=== PATIENT | male | born 1950 | race Caucasian/White ===

== ENCOUNTER 2024-12-14 23:26 | Emergency (ER) | payer BC, SELFPAY ==
[2024-12-14 23:30] VITALS: BP 147/59
[2024-12-15 00:39] LABS: % Basophils 0.7 % (0-2); % Eosinophils 1.7 % (0-6); % Immature Granulocytes 0.6 % (0-0.5); % Lymphocytes 8.6 % (20.5-51.1); % Monocytes 5.2 % (1.7-9.3); % Neutrophils 83.2 % (42.2-75.2); Absolute Basophils 0.1 10^3/uL (0-0.2); Absolute Eosinophils 0.2 10^3/uL (0-0.7); Absolute Immature Granulocytes 0.1 10^3/uL (0-0.05); Absolute Lymphocytes 0.8 10^3/uL (1.2-3.4); Absolute Monocytes 0.5 10^3/uL (0.1-0.6); Absolute Neutrophils 7.6 10^3/uL (1.4-6.5); Hematocrit 40.5 % (39.0-52.0); Hemoglobin 14.1 g/dL (13.0-18.0); Mean Corp Hgb Conc. 34.8 g/dL (33.0-37.0); Mean Corpuscular Hgb 29.1 pg (27.0-31.0); Mean Corpuscular Volume 83.7 fL (80.0-94.0); Mean Platelet Volume 9.3 fL (7.4-10.4); Nucleated Red Blood Cells % 0 % (-); Platelet Count 164 10^3/uL (130-400); Red Blood Cell Count 4.84 10^6/uL (4.70-6.10); Red Cell Dist. Width 15.2 % (11.5-14.5); White Blood Cell Count 9.1 10^3/uL (4.8-10.8)
--- NOTE | 2024-12-15 00:59 | ED.GENMED ---
History of Present Illness
General
Chief Complaint: Abdominal Symptoms
Source: patient and family
Exam Limitations: none
Time Seen by Provider: 12/15/24 00:19
Nursing documentation reviewed up to this point in time: agreed with
History of Present Illness
History of Present Illness:
see MDM
Past History
Past History
ED Past Medical History: NIDDM ('Borderline'), Psychiatric (Anxiety, depression) and Other (CRPS, RSD)
ED Past Surgical History: Cholecystectomy
Social History
Personal:
Review of Systems
Review of Systems
Allergies reviewed?: Yes
All Other Systems: Not applicable
Phy Exam
Physical Exam
Physical Exam:
GENERAL: Alert , in no apparent distress
EYE: pupils equal and reactive
NECK: Supple
ENT: o/p clr, mmm.
CARDIAC: Regular rate and rhythm .
LUNGS: Clear breath sounds bilaterally, no acute respiratory distress, no wheezes/rales/rhonchi
ABDOMEN: Soft, obese, normal bowel sounds
midlin vertical incision well healed
no real tenderness; no guarding/rebound
NEUROLOGICAL: Alert and oriented, no focal neuro deficits
SKIN: Warm and dry, skin intact.
MUSCULOSKELETAL: modearet edema, PVD skin changes
PSYCH: Normal and appropriate interaction.
Course
Orders/Labs/Results
Orders:
Orders
12/14/24 23:35
Complete Blood Count/With Diff Urgent
Comprehensive Metabolic Panel Urgent
Lipase Urgent
Urinalysis Reflex To Culture Urgent
Date Specimen was Collected: 12/14/24
Time Specimen was Collected: 23:35
12/15/24 00:47
CT Abd/pel W Iv And Oral Contr Urgent
Comment:
Reason For Exam: lower abd pain, diarrhea x 5 days; colon ca
0.9% Sodium Chloride 250 ml [Nss] 250 ml IV BOLUS
Iohexol [Omnipaque] See Protocol PO NOW STA
12/15/24 01:05
PTT Urgent
Prothrombin Time Urgent
12/15/24 01:28
Urine Microscopic Reflex Cult Urgent
12/15/24 03:03
STOOL [C difficile Antigen & Toxins] Urgent
HERMELINDO Source: Feces/Stool
Specimen Description:
Date Specimen was Collected: 12/15/24
Time Specimen was Collected: 03:02
Stool Culture Urgent
HERMELINDO Source: Feces/Stool
Specimen Description:
Date Specimen was Collected: 12/15/24
Time Specimen was Collected: 03:02
12/15/24 04:38
Amoxicillin 875 mg/Clav 125 mg [Augmentin 875 mg/125 mg] 1 tablet PO NOW STA
Vancomycin HCl [Firvanq] 125 mg PO NOW STA
12/15/24 04:59
Vancomycin HCl [Firvanq] 125 mg PO NOW STA
Abnormal Lab Results
12/15/24 12/15/24 12/15/24
00: 01:05 01:28
RDW 15.2 H %
(11.5-14.5)
Abs Immat Gran (auto) 0.1 H 10^3/uL
(0-0.05)
Absolute Neuts (auto) 7.6 H 10^3/uL
(1.4-6.5)
Absolute Lymphs (auto) 0.8 L 10^3/uL
(1.2-3.4)
Immature Gran % 0.6 H %
(0-0.5)
Neutrophils % 83.2 H %
(42.2-75.2)
Lymphocytes % 8.6 L %
(20.5-51.1)
PT 32.3 H Sec
(11.4-14.6)
APTT 40.2 H Sec
(23.4-35.0)
Sodium 134 L mmol/L
(135-145)
Carbon Dioxide 20 L mmol/L
(22-30)
BUN 8 L mg/dl
(9-20)
Glucose 176 H mg/dl
(70-99)
Calcium 8.0 L mg/dl
(8.4-10.2)
Urine Ketones 2+ A
(Negative)
Urine Bacteria (Reflex) Few A
(Negative)
Urine Albumin (Reflex) 1+ A
(Neg - Trace)
12/15/24 00:26
12/15/24 00:26
Vital Signs
Initial and Last Documented VS:
Initial Vital Signs
Temp Pulse Resp BP Pulse Ox
36.7 C 101 20 147/59 96
12/14/24 23:30 12/14/24 23:30 12/14/24 23:30 12/14/24 23:30 12/14/24 23:30
Last Documented Vital Signs
Temp Pulse Resp BP Pulse Ox
36.7 C 77 20 147/73 96
12/14/24 23:30 12/15/24 02:08 12/14/24 23:30 12/15/24 03:52 12/15/24 04:00
MDM/Problems Addressed
Differential Diagnosis Includes:
SEE MDM
MDM/Problems Addressed:
Note:
CHIEF COMPLAINT(S)
Diarrhea
HISTORY OF PRESENT ILLNESS
The patient is a male with a past medical history significant for colon cancer and subsequent partial resection approximately one and a half years ago, presenting with diarrhea that began five days ago. The diarrhea occurs every time the patient
consumes food. The patient describes the diarrhea as non-bloody and denies nausea, vomiting, dizziness, or fever. The patient reports crampy abdominal pain preceding the bowel movements but denies bloating or constipation. The patient has
experienced similar diarrhea in the past related to surgery. No recent travel or antibiotic use reported. His , who lives with him, is asymptomatic. The patient is disabled and housebound. Past evaluation for cancer recurrence has been negative.
ADDITIONAL HISTORY OBTAINED FROM SOURCES OTHER THAN THE PATIENT
According to the patient�s report, his has not experienced similar symptoms.
CHRONIC MEDICAL CONDITIONS SIGNIFICANTLY AFFECTING CARE
Chronic conditions affecting care: History of colon cancer with prior surgical resection.
PHYSICAL EXAM
Nursing notes reviewed and vital signs reviewed.
PLAN
A stool sample will be requested to test for Clostridioides difficile infection. The patient will be provided contrast for a bowel scan to assess current bowel status. Electrolyte levels will be checked to evaluate for dehydration. Consideration of
mobility aids (e.g., bedside commode or bedpan) to assist with toileting due to disability and mobility challenges.
DIFFERENTIAL DIAGNOSIS
The Differential Diagnosis includes, in no particular order and is not limited to:
1. Infectious diarrhea
2. Clostridioides difficile infection
3. Partial bowel obstruction
4. Colitis
5. Diverticulitis
6. Medication-induced diarrhea
7. Irritable bowel syndrome
8. Inflammatory bowel disease
9. Ischemic colitis
10. Recurrence or complication of prior colorectal surgery
CARE-UPDATE
12/15/24 - 04:37
The patient presented with pancolitis, likely indicating inflammation or infection of the colon. Given the patients past colonization with [id number] C. diff and recent history of diarrhea for five days, theres a consideration for both
infection management and prevention of C. diff complications. Blood work shows no significant white count elevation, and electrolytes are stable, suggesting hemodynamic stability.
Two management options were discussed: hospital admission for antibiotic treatment and fluid management, or discharge with oral antibiotics including Augmentin and vancomycin to prevent C. diff exacerbation. After consulting with Dr. Arroyo, the
patient expressed a preference for the home management option. It was emphasized that if symptoms worsen, such as increased abdominal pain, fever, or inability to maintain hydration, the patient should return promptly. Additionally, pending stool
culture results could necessitate discontinuation of Augmentin if C. diff is confirmed, leaving vancomycin as the primary treatment. Patients lead pourer is aware of these instructions and will monitor symptoms closely.
Note:
Disposition:
SUMMARY OF ENCOUNTER
A 74-year-old male with a history of colon cancer status post-resection, chronic pain, chf on lasix, and on warfarin presented for evaluation of five days of diarrhea characterized by several episodes of watery stools daily, non-bloody, accompanied
by minimal abdominal cramps prior to each episode. The patient did not exhibit any distress and reported feeling hydrated, being able to drink fluids. Given the prolonged duration of symptoms, he sought medical evaluation. On examination, despite
prior abdominal surgery, his abdomen was soft, mildly obese, non-tender, with normal bowel sounds. A CT scan indicated pancolitis. After review with Dr. Arroyo and consideration of the patients condition and home environment, it was determined the
patient could be managed at home with oral antibiotics.
DISPOSITION
Patient elected for discharge with home management as he felt well and preferred the comfort of home facilities, including his lift chair, which supports toileting due to mobility issues.
INDEPENDENT REVIEW OF LABS AND INTERPRETATION OF TESTS
My independent review of the INR is therapeutic at 3. My independent review of white blood cell count is normal. My independent review of albumin is normal. Stool studies are pending. My independent interpretation of the CT scan is pancolitis.
MEDICATION RECONCILIATION
The patient was empirically treated with oral Augmentin and covered with a few days of vancomycin pending results of the C. difficile studies.
MEDICAL DECISION MAKING
1. Number & Complexity of Problems: Chronic conditions affecting care include a history of colon cancer status post-resection. Differential diagnoses considered include pancolitis and possible C. difficile infection.
2. Data Reviewed: Category 1 data includes review and interpretation of CT scan results and laboratory tests including INR, white blood cell count, and albumin levels.
3. Risk: Consideration of admission/observation was made due to complexity/risk of pancolitis; however, outpatient management was deemed appropriate based on the patient�s preference, his stable condition, and the ability to manage symptoms at home.
PATIENT EDUCATION AND COUNSELING
Patient and lead pourer were instructed to monitor symptoms closely and return promptly if symptoms worsen, such as increasing abdominal pain, fever, or inability to maintain hydration.
FOLLOW-UP INSTRUCTIONS
Follow-up was encouraged, particularly pending stool culture results and in the case of worsening symptoms.
PATHOLOGIES TO CONSIDER
Pathologies considered include C. difficile infection, acute colitis, and potential complications related to prior colorectal surgery such as infection or obstruction.
*Pulse Oximetry
SaO2: 96
Oxygen Mode of Delivery: Room air
Patient hypoxic: no (96)
*Critical Care Note
Total Time (30-74mins, 75-104mins- exclusive of procedures): Not Applicable
ED Attending Note
-
Portions of this chart may have been created with voice recognition software.� Occasional wrong word or��sound alike� substitutions may have occurred due to the inherent limitations of voice recognition software.
Discharge Plan
Departure
Patient Disposition: Home (Routine Discharge)
Date of Disposition: 12/15/24
Time of Disposition: 04:40
Patient with high blood pressure during this ER visit?: No
Condition: Fair
Covid-19: Not Applicable
Discharge Problem:
Pancolitis
Instructions: Colitis - Discharge instructions
Prescriptions:
New
vancomycin 125 mg capsule
125 mg PO QID Qty: 12 0RF
amoxicillin-pot clavulanate 875-125 mg tablet
1 tab PO BID Qty: 14 0RF
No Action
furosemide 40 mg Tablet
40 mg PO DAILY Qty: 0
trazodone 100 mg Tablet
100 mg PO HS Qty: 0
hydromorphone 4 mg Tablet
4 mg PO BID Qty: 0
insulin glargine [Lantus Solostar U-100 Insulin] 300 UNITS/3 ML insulin pen
4 units SC HS
Rx Instructions:
E11.65
triamcinolone acetonide 0.1 % cream
1 applic TOPICAL DAILY
Rx Instructions:
Apply topically to armpits, breast area, groin and buttocks daily in the AM.
insulin lispro [Humalog KwikPen Insulin] 100 unit/mL insulin pen
3 unit SC TID
warfarin 5 mg Tablet
10 mg PO FR
warfarin 5 mg Tablet
7.5 mg PO SUMOTUWETHSA
ciprofloxacin HCl 500 mg Tablet
500 mg PO BID Qty: 6 0RF
vancomycin [Firvanq] 50 mg/mL Recon Soln
125 mg PO Q6 3 Days Qty: 30 0RF
loperamide 2 mg Capsule
2 mg PO BIDPRN PRN (Reason: diarrhea) Qty: 20 0RF
metronidazole 500 mg Tablet
500 mg PO Q8 Qty: 9 0RF
Referrals:
Catalina Loya MD [Family Provider, Internal Medicine] - Follow up in 5-7 days
Activity Restrictions/Additional Instructions:
Your CAT scan showed that your colon is inflamed, called pancolitis. This is likely from an infection in your stool. We tested you for C. difficile and other bacteria but the results are not in yet. Previously you did have C. difficile
colonization that was nontoxin producing but they still covered you with the vancomycin while you are on other antibiotics. We are going to do this again. You should use Augmentin twice a day for 7 days for this diarrhea. Eat the brat diet,
bananas, rice, applesauce, toast to help bind your stool. Make sure you stay hydrated. While you are on this Augmentin you should use vancomycin 4 times a day for 3 days. We will call you if your C. difficile is positive and check on you. Have a
low threshold for returning to the ER for worsening symptoms like abdominal pain,
Bloody stool, fevers or chills, weakness, dehydration, severe pains.
Interventions
Interventions:
*Risk Screen - Suicide Last Done: 12/14/24 23:30
*General Assessment Last Done: 12/14/24 23:30
*Neglect/Abuse Screening Last Done: 12/14/24 23:30
*ED- Fall Risk Assessment Last Done: 12/14/24 23:30
*ED COVID-19 Vaccine History Last Done: 12/14/24 23:30
SZ-Gfxrsl-Uflhshqjay Assessment Last Done: 12/15/24 03:00
Discharge Date and Time
Print Language: BAHAMIAN
[2024-12-15 01:00] LABS: ALT (SGPT) 20 U/L (0-50); AST (SGOT) 26 U/L (17-59); Albumin 3.7 g/dl (3.5-5.0); Alkaline Phosphatase 65 U/L (38-126); Blood Urea Nitrogen 8 mg/dl (9-20); Carbon Dioxide 20 mmol/L (22-30); Chloride 107 mmol/L (98-107); Glucose 176 mg/dl (70-99); Potassium 3.7 mmol/L (3.5-5.1); Sodium 134 mmol/L (135-145); Total Bilirubin 0.8 mg/dl (0.2-1.3); Total Protein 6.5 g/dl (6.3-8.2); eGFR > 60.00
[2024-12-15] MEDS: NSS 250 IV (01:00)
[2024-12-15] MEDS: OMNIPAQUE 50 ML PO (01:02)
[2024-12-15 01:19] LABS: Lipase 51 U/L (23-300)
[2024-12-15 01:24] LABS: PT 32.3 Sec (11.4-14.6)
[2024-12-15 01:25] LABS: APTT 40.2 Sec (23.4-35.0)
[2024-12-15 01:34] LABS: Urine Albumin 1+ (Neg - Trace); Urine Bilirubin Negative (Negative); Urine Character Clear (Clear); Urine Color Yellow; Urine Glucose Negative (Negative); Urine Ketone 2+ (Negative); Urine Leukocyte Negative (Negative); Urine Nitrite Negative (Negative); Urine Occult Blood Negative (Negative); Urine Urobilinogen Negative (Neg - 1+)
[2024-12-15 01:45] LABS: Urine Amorphous Seen; Urine Bacteria Few (Negative); Urine Red Blood Cell 0-2 /HPF (0-2)
[2024-12-15 02:01] VITALS: BP 137/72
[2024-12-15 03:52] VITALS: BP 147/73
[2024-12-15] MEDS: FIRVANQ 125 MG PO (05:07)
[2024-12-15] MEDS: AUGMENTIN 875 MG/125 MG 1 TABLET PO (05:08)
== END 2024-12-15 05:20 | disposition home or self-care (01) ==
LOC: EMR 23:26
PROVIDERS: Emergency Medicine; Physician Assistant; EMERGENCY PHYSICIAN Emergency Medicine; FAMILY PHYSICIAN Student in an Organized Health Care Education/Training Program
DX: K52.9 Noninfective gastroenteritis and colitis, unspecified (principal); E11.9 Type 2 diabetes mellitus without complications; F41.8 Other specified anxiety disorders; Z85.038 Personal history of other malignant neoplasm of large intestine; Z90.49 Acquired absence of other specified parts of digestive tract
CPT/HCPCS: 99284; 74177; 80053; 81003; 81015; 83690; 85025; 85610; 85730; 87045; 87046; 87324; 87427; 87449; Q9967